=== PATIENT | female | born 1975 | race Caucasian/White ===

== ENCOUNTER 2020-09-12 07:01 | Day surgery (SDC) | payer BC ==
--- NOTE | 2020-09-11 11:19 | PCM.PREANE ---
Preanesthetic Assessment - Procedure Proposed Procedure: Total Vaginal Hysterectomy with bilateral salpingectomy - Anesthesia/Transfusion/Family Hx Anesthesia History: No Prior Anesthesia Family History of Anesthesia Reaction: No Transfusion History: No Prior Transfusion(s) Intubation History: Unknown - Review of Systems General: No Symptoms Pulmonary: No Symptoms (ETOH: couple of mixed drinks twice a week) Cardiovascular: No Symptoms Gastrointestinal: No Symptoms Neurological: No Symptoms Other: Reports: None, Easy Bruising, Thyroid Problems (enlarged thyroid with nodule noted.) - Physical Assessment NPO Status Date: 09/11/20 NPO Status Time: 21:30 Vital Signs: HR: 81 Sat: 97% Temp: 98.4 B/P: 133/92 Resp: 12 Height: 1.7 m Weight: 109 kg ASA Class: 3 Mental Status: Alert & Oriented x3 Airway Class: Mallampati = 2 Dentition: Reports: Normal Dentition, Caries Thyro-Mental Finger Breadths: 3 Mouth Opening Finger Breadths: 3 ROM/Head Extension: Full Lungs: Clear to Auscultation, Normal Respiratory Effort Cardiovascular: Regular Rate, Regular Rhythm, No Murmurs - Lab Values: All labs reviewed and noted and within acceptable ranges to proceed with scheduled procedure. - Imaging/EKG Impressions: CXR: negative - Allergies Allergies/Adverse Reactions: Allergies Allergy/AdvReac Type Severity Reaction Status Date / Time No Known Allergies Allergy Verified 09/11/20 11:59 - Anesthesia Plan Pre-Op Medication Ordered: None - Acknowledgements Anesthesia Type Planned: General Anesthesia Pt an Appropriate Candidate for the Planned Anesthesia: Yes Alternatives and Risks of Anesthesia Discussed w Pt/Guardian: Yes Pt/Guardian Understands and Agrees with Anesthesia Plan: Yes PreAnesthesia Questionnaire - HOME MEDS Home Medications: Home Meds Cholecalciferol (Vitamin D3) [Vitamin D3] 1,000 unit PO DAILY 09/11/20 [History] Fish Oil/Isabel-3 Fatty Acids [Fish Oil 1,000 MG] 1 gm PO DAILY 09/11/20 [History] Multivitamin 1 tab PO DAILY 09/11/20 [History] l-Norgest/E.estradiol-E.estrad [Jaimiess 0.15-0.03-0.01 mg Tab] 1 tab PO DAILY 09/11/20 [History] - CURRENT (IN HOUSE) MEDS Current Meds: Current Medications Lactated Ringer's (Ringers, Lactated) 1,000 mls @ 125 mls/hr IV ASDIRECTED RACHID Stop: 09/12/20 23:00 Lidocaine/Sodium Bicarbonate (Lidocaine 1%/Sod Bicarbonate In Ns 8.4% 1 Ml Syringe) 0.25 ml IDERM ONETIME PRN PRN Reason: Prior to IV Start Stop: 09/12/20 18:00 Sodium Chloride (Sodium Chloride 0.9% 10 Ml Syringe) 10 ml FLUSH ASDIRECTED PRN PRN Reason: Keep Vein Open Stop: 09/12/20 18:00
[~2020-09-12 07:01] MED LIST: Albuterol 0.083% 2.5 MG/3 ML Neb Soln NEB PRN; Lactated Ringers 1,000 ML IV SCH; Lidocaine 1%/Sod Bicarbonate in NS 8.4% 1 ML Syringe IDERM PRN; Sodium Chloride 0.9% 10 ML Syringe FLUSH PRN
[2020-09-12] MEDS ORDERED: Lidocaine 1% with EPINEPHrine 1:100,000 10 ML MDV ONE (07:07)
[2020-09-12] MEDS ORDERED: Sodium Chloride 0.9% 50 ML SDV ONE (07:07)
[2020-09-12] MEDS ORDERED: Ketorolac 30 MG/ML SDV ONE (07:13)
[2020-09-12] MEDS ORDERED: Lidocaine 1% 4 ML ONE (07:13)
[2020-09-12] MEDS ORDERED: Lactated Ringers 1,000 ML ONE (07:13)
[2020-09-12] MEDS ORDERED: Rocuronium 50 MG/5 ML Vial ONE (07:13)
[2020-09-12] MEDS ORDERED: Propofol 200 MG/20 ML SDV ONE (07:13)
[2020-09-12] MEDS ORDERED: Dexamethasone 4 MG/ML 5 ML MDV ONE (07:13)
[2020-09-12] MEDS ORDERED: ceFAZolin 1 GM Vial ONE (07:13)
[2020-09-12] MEDS ORDERED: Ondansetron 4 MG/2 ML SDV ONE (07:13)
[2020-09-12] MEDS ORDERED: Midazolam 1 MG/ML 2 ML SDV ONE (07:14)
[2020-09-12] MEDS ORDERED: HYDROmorphone 0.5 MG/0.5 ML Syringe ONE (07:14)
[2020-09-12] MEDS ORDERED: fentaNYL 250 MCG/5 ML SDV ONE (07:14)
[2020-09-12] MEDS ORDERED: HYDROmorphone 0.5 MG/0.5 ML Syringe IVPUSH PRN (08:16)
[2020-09-12] MEDS ORDERED: diphenhydrAMINE 50 MG/ML SDV IVPUSH PRN (08:16)
[2020-09-12] MEDS ORDERED: fentaNYL 100 MCG/2 ML SDV IVPUSH PRN (08:16)
[2020-09-12] MEDS ORDERED: ePHEDrine 50 MG/ML SDV IVPUSH PRN (08:16)
[2020-09-12] MEDS ORDERED: Ondansetron 4 MG/2 ML SDV IVPUSH PRN ×2 (08:16→08:56)
[2020-09-12] MEDS ORDERED: Albuterol 0.083% 2.5 MG/3 ML Neb Soln NEB PRN (08:16)
[2020-09-12] MEDS ORDERED: Glycopyrrolate 0.2 MG/ML SDV ONE (08:35)
[2020-09-12] MEDS ORDERED: Acetaminophen/oxyCODONE 325-5 MG Tab PO PRN (08:56)
--- NOTE | 2020-09-12 09:03 | PCM.OPNOTE ---
- General Post-Op/Procedure Note Date of Surgery/Procedure: 09/12/20 Operative Procedure(s): Total vaginal hysterectomy with bilateral salpingectomy Findings: Uterus tubes and ovaries appeared to be within normal limits. Ovaries Bilaterally appear to be functional. Patient has a grade 1 cystocele. Pre Op Diagnosis: 1. Menorrhagia. 2. Dysmenorrhea Post-Op Diagnosis: Same Anesthesia Technique: General ET Tube Other Anesthesia Type: Lidocaine quarter percent with [id number] cclocal Primary Surgeon: Rony Carpenter Secondary Surgeon: Boo Arizmendi Anesthesia Provider: Briseyda Kim Reason V Belt Builder Was Necessary: Retraction, assistance, patient safety, quality of care. Pathology: Uterus, bilateral fallopian tubes and one specimen container. Fluid Replacement, Intraop: 1,300 EBL in mLs: 20 Complications: None Condition: Good Free Text/Narrative:: Surgery duration: 35 minutes Procedure: The patient was placed in supine position on the operating table. General endotracheal anesthesia was accomplished. After positioning, and adequate prep and drape, the procedure was then performed. Sterile speculum was placed in the vagina and cervix was visualized. Cervix was injected with lidocaine quarter percent with epinephrine-20 mL used. A full circumference incision was made in the cervical epithelium. The bladder was pushed well back off cervix. Posterior cul-de-sac was then entered sharply without problems. Left uterosacral was crossclamped with a Enseal vessel closure system. The left uterosacral and then the right uterosacral ligament pedicles were developed using the Enseal system. The anterior cul-de-sac was then entered without problems and the uterine vasculature, cardinal ligament and broad ligament then developed using Enseal vessel closure system. The uterus was inverted at this time and upper broad ligament fallopian tube pedicles were crossclamped with Noah clamps. Specimen was totally removed. Both these pedicles were then secured with the Enseal vessel closure system. Left and right fallopian tube was normal in appearance.. Using Enseal vessel closure system each of the tubes was then removed and sent with the specimen. The patient was found to be hemostatically intact at this time. Vaginal cuff was sutured for hemostatic reasons with a running locked suture of 0 Monocryl from the 2 o'clock position to the 10 o'clock position posteriorly. Vaginal cuff was then closed from right to left side with a running locked suture of 0 Monocryl. Patient was returned to supine position and awakened from general endotracheal anesthesia. She tolerated the procedure and left the operating room in satisfactory condition.
--- NOTE | 2020-09-12 09:04 | PCM.POSTAN ---
POST ANESTHESIA ASSESSMENT - MENTAL STATUS Mental Status: Alert - VITAL SIGNS Vital Signs: Last Vital Signs Temp 97.2 09/12/20 0857 Pulse 68 09/12/20 0857 Resp 19 09/12/20 0857 BP 128/69 09/12/20 0857 Pulse Ox 97% 09/12/20 0857 - RESPIRATORY Respiratory Status: Respiratory Rate WNL, Airway Patent, O2 Saturation Stable, Supplemental Oxygen - CARDIOVASCULAR CV Status: Pulse Rate WNL, Blood Pressure Stable - GASTROINTESTINAL GI Status: No Symptoms - POST OP HYDRATION Hydration Status: Adequate & Stable
--- NOTE | 2020-09-12 10:16 | PCM48HPAN ---
Post Anesthesia Note - EVALUATION WITHIN 48HRS OF ANESTHETIC Vital Signs in Normal Range: Yes Patient Participated in Evaluation: Yes Respiratory Function Stable: Yes Airway Patent: Yes Cardiovascular Function Stable: Yes Hydration Status Stable: Yes Pain Control Satisfactory: Yes Nausea and Vomiting Control Satisfactory: Yes Mental Status Recovered: Yes Vital Signs: Last Vital Signs Temp 36.3 C 09/12/20 10:00 Pulse 73 09/12/20 10:03 Resp 14 09/12/20 10:03 BP 118/77 09/12/20 10:03 Pulse Ox 95 09/12/20 10:03
--- NOTE | 2020-09-12 11:26 | PCM48HPAN ---
Post Anesthesia Note - EVALUATION WITHIN 48HRS OF ANESTHETIC Vital Signs in Normal Range: Yes Patient Participated in Evaluation: Yes Respiratory Function Stable: Yes Airway Patent: Yes Cardiovascular Function Stable: Yes Hydration Status Stable: Yes Pain Control Satisfactory: Yes Nausea and Vomiting Control Satisfactory: Yes Mental Status Recovered: Yes Vital Signs: Last Vital Signs Temp 97.5 F 09/12/20 10:30 Pulse 68 09/12/20 11:00 Resp 14 09/12/20 11:00 BP 108/62 09/12/20 11:00 Pulse Ox 95 09/12/20 11:00 - COMMENTS/OBSERVATIONS Free Text/Narrative:: Sitting up in bed. no complaints. smiling
[2020-09-12] MEDS ORDERED: Ketorolac 30 MG/ML SDV IVPUSH SCH (13:30)
[2020-09-12] MEDS ORDERED: Ibuprofen 600 MG Tab PO PRN (19:30)
== END 2020-09-12 12:23 | disposition home or self-care (01) ==
LOC: JD.SDS 07:01
PROVIDERS: ATTEND Obstetrics & Gynecology
DX: D25.1 Intramural leiomyoma of uterus (principal); N92.0 Excessive and frequent menstruation with regular cycle; N80.0 Endometriosis of uterus; E66.9 Obesity, unspecified; Z68.37 Body mass index [BMI] 37.0-37.9, adult
CPT/HCPCS: 58262; 81025; J0690; J1100; J1170; J1885; J2250; J2405; J2704; J2710; J3010; J3490; J7120; 00944; J2370

== ENCOUNTER 2022-01-14 15:06 | Emergency (ER) | payer BC ==
[2022-01-14] MEDS ORDERED: Dexamethasone 4 MG Tab PO ONE (16:29)
== END 2022-01-14 18:30 ==
LOC: JD.ED 15:06
DX: D32.9 Benign neoplasm of meninges, unspecified (principal); Z20.822 Contact with and (suspected) exposure to COVID-19
CPT/HCPCS: 36415; 80053; 85025; 85610; 87635; 99284; J8540; U0002